=== PATIENT | male | born 1955 | race Caucasian/White ===

== ENCOUNTER → 2017-05-27 | Outpatient (CLI) | payer BC ==
--- NOTE | 2017-05-27 16:22 | CT ---
EXAMINATION TYPE: CT sinus wo con DATE OF EXAM: 05/27/2017 COMPARISON: NONE HISTORY: Head pressure and pain when sneezing and coughing. Chronic sinusitis per order. CT DLP: 654.4 mGycm. Automated Exposure Control for Dose Reduction was Utilized. TECHNIQUE: CT scan of the sinuses is performed without contrast, axial images are obtained, coronal r eformatted images are also reviewed. FINDINGS: There is mild mucosal thickening with tiny mucous retention cysts or polyps in the inferior right maxillary sinus. There is mild mucosal thickening anterior right sphenoid sinus. The paranasa l sinuses including the frontal, ethmoid, sphenoid, and maxillary sinuses bilaterally otherwise are w ell-aerated without abnormal opacification. The ostiomeatal complex is patent bilaterally on the cor onal images. Visualized portion of mastoid air cells show no abnormal opacification. Soft tissue density bilateral external auditory canals likely reflects cerumen. The globes are intact bilaterally. IMPRESSION: Mild chronic paranasal findings. No acute sinus disease seen. Ostiomeatal complexes are p atent bilaterally.
== END | disposition home or self-care (01) ==
LOC: RADCTMAIN 15:35
PROVIDERS: ATTEND Family Medicine
DX: J32.9 Chronic sinusitis, unspecified (principal)
CPT/HCPCS: 70486

== ENCOUNTER → 2017-06-29 | Outpatient (CLI) | payer BC | END | disposition home or self-care (01) | LOC: LABWHC1 15:51 | PROVIDERS: ATTEND Otolaryngology | DX: R51 Headache (principal); R05 Cough | CPT/HCPCS: 36415; 82565 ==

== ENCOUNTER → 2017-06-30 | Outpatient (CLI) | payer BC ==
--- NOTE | 2017-06-30 14:57 | MR ---
EXAMINATION TYPE: MR brain wo/w con DATE OF EXAM: 06/30/2017 COMPARISON: 05/27/2017 CT sinus HISTORY: Cephalgia with cough TECHNIQUE: Multiplanar, multisequence images of the brain and brainstem is performed without and with IV contras t, utilizing 6.5 mL intravenous Gadavist . FINDINGS: Diffusion weighted images demonstrate no evidence of a recent infarct or other diffusion ab normality. There is no extra-axial fluid collection. Positive foci of T2/FLAIR hyperintensity are sc attered throughout the subcortical and periventricular white matter with the largest on the left trell uring 4 mm on image 19 of axial FLAIR fat sat sequence. Additional punctate focus is seen within the right cerebellar hemisphere on image 9. None of these demonstrate abnormal enhancement or surrounding vasogenic edema. Mild mucosal thickening is seen within the ethmoid and maxillary sinuses. Major intracranial flow voi ds are maintained. Left RIPRAP MAN is noted to be diminutive in caliber in comparison to the right. The yumi tricular system and cisternal spaces are normal in size and appearance. The brain volume is age appr opriate. Midline structures demonstrate normal morphology. 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 The craniocervical junction appears within normal limits. Post contrast images demonstrate no abnormal enhancement. The dural venous sinuses appear patent. The globes are intact. IMPRESSION: 1. No evidence of abnormal intracranial enhancement, midline shift or mass effect. No acute territori al infarct. 2. 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 3. Mild paranasal sinus disease.
== END | disposition home or self-care (01) ==
LOC: RADMRIMAIN 06:45
PROVIDERS: ATTEND Otolaryngology
DX: R90.82 White matter disease, unspecified (principal); R51 Headache; R05 Cough
CPT/HCPCS: 70553; A9581

== ENCOUNTER → 2017-09-08 | Outpatient (CLI) | payer BC ==
--- NOTE | 2017-09-08 20:39 | CT ---
EXAMINATION TYPE: CT angio head DATE OF EXAM: 09/08/2017 5:52 PM COMPARISON: NONE HISTORY: c/o headaches X [address] DLP: 1338.3 mGycm Automated exposure control for dose reduction was used. TECHNIQUE: Performed with IV Contrast, patient injected with 100 mL of Isovue 370. There are 3-D post processed images.. Noncontrast images were also obtained. FINDINGS: Noncontrast images show no pathologic calcification or intracranial hemorrhage. Ventricles appear nor mal. There is no mass effect. There is arterial flow in the vertebrobasilar artery system. There is bilateral distal vertebral nakia ry flow. There is bilateral intracranial internal carotid artery flow. There is arterial flow in the anterior middle and posterior cerebral arteries. I see no sign of hemodynamically significant stenosi s. I see no aneurysm or neovascularity. There is no mass effect. There is normal contrast opacificati on of the venous sinuses. IMPRESSION: NEGATIVE CT ANGIOGRAM OF THE BRAIN.
== END | disposition home or self-care (01) ==
LOC: RADCTMAIN 16:42
PROVIDERS: ATTEND Psychiatry & Neurology Neurology
DX: G44.84 Primary exertional headache (principal)
CPT/HCPCS: 85652; 70496; Q9967

== ENCOUNTER → 2021-09-04 | Outpatient (CLI) | payer MEDICARE ==
--- NOTE | 2021-09-04 14:22 | CA ---
Transthoracic Echo Report Name: Yoseph Pantoja Age: 65 Gender: M : 1955 Exam Date: 09/04/2021 10:47 Exam Location: [facility] Ht (in): 65 Wt (lb): 142 Ordering Physician: Marko Steiner MD Attending/Referring Phys: Marko Steiner MD [employer] Operations Processor Catalina Salazar, [facility] Procedure CPT: Indications: R07.9 I31.9 Cardiac Hx: Technical Quality: Fair Contrast 1: Total Dose (mL): Contrast 2: Total Dose (mL): MEASUREMENTS (Male / Female) Normal Values 2D ECHO LV Diastolic Diameter PLAX 4.3 cm 4.2 - 5.9 / 3.9 - 5.3 cm LV Systolic Diameter PLAX 2.3 cm IVS Diastolic Thickness 1.2 cm 0.6 - 1.0 / 0.6 - 0.9 cm LVPW Diastolic Thickness 1.1 cm 0.6 - 1.0 / 0.6 - 0.9 cm LV Relative Wall Thickness 0.5 RV Internal Dim ED PLAX 3.0 cm LA Volume 44.6 cm??? 18 - 58 / 22 - 52 cm??? M-MODE Aortic Root Diameter MM 2.9 cm LA Systolic Diameter MM 3.2 cm LA Ao Ratio MM 1.1 AV Cusp Separation MM 1.6 cm DOPPLER AV Peak Velocity 141.8 cm/s AV Peak Gradient 8.0 mmHg LVOT Peak Velocity 76.1 cm/s LVOT Peak Gradient 2.3 mmHg MV Area PHT 3.5 cm??? Mitral E Point Velocity 98.7 cm/s Mitral A Point Velocity 84.4 cm/s Mitral E to A Ratio 1.2 MV Deceleration Time 215.5 ms TR Peak Velocity 256.6 cm/s TR Peak Gradient 26.3 mmHg Right Ventricular Systolic Press 30.7 mmHg FINDINGS Left Ventricle Mildly increased left ventricular wall thickness. Normal left ventricular wall motion. Normal left ventricular diastolic filling pattern. Left ventricular cavity size normal. Left ventricular ejection fraction is estimated at 55-60 %. Right Ventricle Normal right ventricular size and function. Right ventricular systolic pressure within normal limits. Right Atrium Normal right atrial size. Left Atrium Normal left atrial size. No evidence for an atrial septal defect. Mitral Valve Structurally normal mitral valve. No mitral stenosis. Trace to mild to moderate mitral regurgitation. Aortic Valve Trileaflet aortic valve. No aortic stenosis. No aortic regurgitation. Tricuspid Valve Structurally normal tricuspid valve. Mild tricuspid regurgitation. Pulmonic Valve Structurally normal pulmonic valve. Trace pulmonic regurgitation. Pericardium No pericardial effusion. Aorta Normal size aortic root and proximal ascending aorta. CONCLUSIONS Normal left ventricular dimension and systolic function [id number] mitral regurgitation Previewed by: Dr. Alejandro Pitts MD (Electronically Signed) Final Date: 04 Sep 2021 14:21
--- NOTE | 2021-09-04 14:24 | CA ---
Stress Echo Report Yoseph Pantoja Age: 65 Gender: M : 1955 Exam Date: 09/04/2021 10:33 Exam Location: [facility] Ht (in): 65 Wt (lb): 142 Ordering Physician: Marok Steiner MD Referring Physician: Marko Steiner MD Sy[employer] Cook: [employer] Techn[employer] Procedure CPT: Indication: R07.9 I31.9 ICD-9 Codes: Rhythm: Patient History: CHEST PAIN Cardiac Medications: NONE Medications in past 24 hours: Contrast: N/A Stress Results Protocol: Garth Total dose(mL): Exercise Duration (min:sec): 7:[address] Depression (mm): Angina Score: Ward Score: METS: 8.5 Resting HR: 74 Resting BP: 131 / 75 Peak HR: 0 Peak BP: 176 / 89 Max Predicted HR: 153 0 % Max Predicted HR Target HR: 130 Double Product: 0 Stress Summary: BP Response: Reason for Termination: Reached target heart rate or work-load Cardiac Symptoms: NO SYMPTOMS ECG Analysis Resting ECG: Stress ECG: Arrhythmia: Echo Analysis Resting Echo: Peak Echo Analysis: MEASUREMENTS (Male/Female) Normal Values CONCLUSIONS Good exercise tolerance Normal EKG in response to exercise Normal echocardiogram in response to exercise Dr. Alejandro Pitts MD (Electronically Signed) Final Date: 04 Sep 2021 14:23
== END | disposition home or self-care (01) ==
LOC: RADNMMAIN 09:46
PROVIDERS: ATTEND Internal Medicine Geriatric Medicine
DX: I08.1 Rheumatic disorders of both mitral and tricuspid valves (principal)
CPT/HCPCS: 93306; 93351

== ENCOUNTER → 2024-04-06 | Outpatient (CLI) | payer MEDICARE ==
--- NOTE | 2024-04-06 16:49 | US ---
EXAMINATION TYPE: US groin BILAT DATE OF EXAM: 04/06/2024 COMPARISON: NONE CLINICAL INDICATION: Male, 68 years old with history of R10.2 PELVIC AND PERINEAL PAIN; bilat groin p ain TECHNIQUE: several images taken at bilateral groin with and without valsalva scale and color Dopple r imaging performed. FINDINGS: At the right groin there is a 2.3x0.9x1.6 cm likely femoral hernia at the left groin there is a 3.6x1.4x2.9cm likely lipoma IMPRESSION: Right femoral probable hernia. Left groin mass likely representing fat-containing lesion such as a lipoma. These findings can be confirmed with CT or MRI with palpable marker placement. [facility], , 04/06/2024 4:46 PM
== END | disposition home or self-care (01) ==
LOC: RADUSWWP 15:59
PROVIDERS: ATTEND Internal Medicine Geriatric Medicine
DX: R10.2 Pelvic and perineal pain (principal); R19.09 Other intra-abdominal and pelvic swelling, mass and lump
CPT/HCPCS: 76882